=== PATIENT | male | born 1980 | race Caucasian/White ===

== ENCOUNTER 2018-05-02 12:31 | Observation (INO) | payer MEDICAID ==
--- NOTE | 2018-05-02 13:41 | EDPHY ---
H & P Stated Complaint: Right neck swelling Time Seen by Provider: 05/02/18 13:01 HPI/ROS: CHIEF COMPLAINT: Right-sided neck swelling HISTORY OF PRESENT ILLNESS: 37-year-old male HIV positive presents with right- sided neck swelling. Onset of gradually increasing right sided neck swelling 2 months ago. The area is now painful and erythematous. He had an IV placed rt neck 6 months ago, no recent trauma. No other adenopathy. He was seen by Dr. Whitfield in the office, who sent him to the ED for admission. He was diagnosed with HIV 6 months ago. Unknown CD4 count. No cough, chest pain, abdominal pain. REVIEW OF SYSTEMS: complete 10 point ROS reviewed and is negative except for the noted elements in the HPI Source: Patient - Personal History Current Tetanus/Diphtheria Vaccine: Unsure - Medical/Surgical History Hx Asthma: No Hx Chronic Respiratory Disease: No Hx Diabetes: No Hx Cardiac Disease: No Hx Renal Disease: No Hx Cirrhosis: No Hx Alcoholism: No Hx HIV/AIDS: Yes Hx Splenectomy or Spleen Trauma: No Other PMH: HIV - Social History Smoking Status: Never smoked Alcohol Use: Sober - Physical Exam Exam: General Appearance: Alert, pleasant Eyes: Pupils equal and round, no conjunctival pallor or injection ENT, Mouth: Mucous membranes moist Neck: Right lateral neck -3 cm firm area of swelling with overlying erythema just above the clavicle Respiratory: Lungs are clear to auscultation Cardiovascular: Regular rate and rhythm Gastrointestinal: Abdomen is soft and nontender Neurological: A&O, nonfocal, normal gait Skin: Warm and dry, no rash Extremities: Nontender, no pedal edema Psychiatric: Mood and affect normal Constitutional: Initial Vital Signs Temperature (C) 36.4 C 05/02/18 12:39 Heart Rate 97 05/02/18 12:39 Respiratory Rate 18 05/02/18 12:39 Blood Pressure 142/81 H 05/02/18 12:39 O2 Sat (%) 95 05/02/18 12:39 O2 Delivery Mode Room Air Allergies/Adverse Reactions: sulfamethoxazole [From Bactrim] Allergy (Verified 05/02/18 14:57) trimethoprim [From Bactrim] Allergy (Verified 05/02/18 14:57) Home Medications: Medication Instructions Recorded Albuterol [Proventil Inhaler HFA 1 - 2 puffs IH Q4H PRN 05/02/18 (*)] Dapsone [Dapsone 100 mg (*)] 100 mg PO DAILY06 05/02/18 Emtricitabine/Tenofov Alafenam 1 each PO DAILY06 05/02/18 [Descovy 200-25 mg Tablet] Multivitamins [Multivitamin (*)] 1 each PO DAILY 05/02/18 Tivicay 50 mg PO DAILY06 05/02/18 valGANciclovir HCL [Valganciclovir 450 mg PO DAILY@12 05/02/18 HCl] Medical Decision Making - Diagnostics Imaging Results: CT scan of the chest read by the radiologist reveals mediastinal adenopathy and a ground-glass appearance to the lungs. Imaging: Discussed imaging studies w/ call worker person Radiologist ED Course/Re-evaluation: Old medical record reviewed. CD4 count is less than 500 and viral load has been decreasing since September 2017. Clinical presentation concerning for abscess, ultrasound-guided aspiration ordered. The patient is nontoxic-appearing and does not meet SIRS criteria. Will await antibiotics until the aspiration has been performed. Multiple lab and imaging studies ordered as requested by Dr. Whitfield. The hospitalist service was consulted for admission. Differential Diagnosis: Includes does not limited to abscess, lymphoma, lymphadenitis, DVT. - Data Points Laboratory Results: Laboratory Results 05/02/18 13:33 05/02/18 13:33 05/02/18 13:33 CMV Specimen Source Pending CMV DNA Detection Pending Medications Given: Discontinued Medications Dapsone (Dapsone) 100 mg PO DAILY06 [facility] PRN Reason: Protocol Stop: 06/02/18 05:59 Last Admin: 05/03/18 05:06 Dose: 100 mg Sodium Chloride (Ns) 1,000 mls @ 125 mls/hr IV CONT [facility] Stop: 10/29/18 15:44 Last Admin: 05/02/18 18:12 Dose: 1,000 mls Miscellaneous Medication (Emtricitabine/Tenofov Alafenam [Descovy 200-25 Mg Tablet]) 1 each PO DAILY06 [facility] Stop: 10/30/18 05:59 Last Admin: 05/03/18 05:07 Dose: 200 mg Miscellaneous Medication (Tivicay) 50 mg PO DAILY06 [facility] Stop: 10/30/18 05:59 Last Admin: 05/03/18 05:06 Dose: 50 mg Multivitamins (Tab-A-Michael) 1 each PO DAILY [facility] Stop: 10/30/18 08:59 Last Admin: 05/03/18 09:58 Dose: 1 each Valganciclovir (Valcyte) 450 mg PO DAILY@1200 [facility] Stop: 06/02/18 11:59 Last Admin: 05/03/18 11:45 Dose: 450 mg Point of Care Test Results: Chemistry 05/02/18 14:14 POC Sodium 144 mEq/L mEq/L (135-145) POC Potassium 4.0 mEq/L mEq/L (3.3-5.0) POC Chloride 106 mEq/L mEq/L (97-110) POC BUN 13 mg/dL mg/dL (7-23) POC Creatinine 1.1 mg/dL mg/dL (0.7-1.3) POC Glucose 115 mg/dL H mg/dL (70-100) ISTAT H&H 05/02/18 14:14 POC Hgb 12.9 gm/dL L gm/dL (13.7-17.5) POC Hct 38 % L % (40-51) Departure - Departure Disposition: [facility] Inpatient Acute Clinical Impression: Neck mass Condition: Good
[2018-05-02 13:45] LABS: PLATELET COUNT 361 10^3/uL (150-400)
[2018-05-02] MEDS ORDERED: IOPAMIDOL (ISOVUE-300) 100 ML BTL ONE (14:20)
--- NOTE | 2018-05-02 15:05 | PDCONSULT ---
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 DDx mycobacteria (MAC, TB), fungal vs malignancy likely lymphoma. Strongly suspect MAC. Prior BAL cx showed MAC from 10/2017 --biopsy neck LN: send standard, AFB, fungal cx and path --Crypto An, Urine histo An, AFB blood culture --hopeful for rapid discharge # HIV/AIDS: --Continue TAF/FTC/DTG --Continue secondary ppx PJP w dapsone # CMV pneumonitis --continue valganciclovir --recheck CMV PCR # chronic cough and ground glass appearance on CT scan --may have to consider additional for pulmonary abn but could be residual changes from prior pulmonary abn INFECTIOUS DISEASE CONSULT Chief complaint: right neck mass [facility] patient History of present illness: This is a 37 year-old male, with hx of HIV AIDS tx with Johanna, HSV -1, pneumocystis in 09/2017 at time of HIV dx, JONNIE (no current tx), oral candidiasis with no associated oral pain, syphilis in 2011, HTN, and CMV PNA tx with valganciclovir. Pt developed a right neck swelling in mid-February which was tender, associated with fever and night sweats which have now resolved. Today, reports dry cough for past x4-6 weeks that is relatively stable and is exacerbated while laying flat, has tried tx with cough drops without relief, and has some days without coughing. Reports lack of energy and feeling really tired, but other than that is feeling fine." Denies BLE edema, weight loss, or loss in appetite. Pt is admitted for work-up of right neck mass. At time of HIV diagnoses pt had a CD4 count of 7 and a viral load of 1.8 million copies. On 01/23/18 CD4 count was 137 at 24%. On 02/17/18 his viral load was 224 copies. PMHx: HIV AID tx with Nataliay and Maxxay, HSV-1, pneumocystis in 09/2017 at time of HIV dx, JONNIE (no current tx), oral candidiasis with no associated oral pain, syphilis in 2011, CMV PNA on tx with valganciclovir, and HTN. SHx: Adenoidectomy, cleft lip, wisdom teeth extraction Family hx: Mothers grandfather of a heart attack in mid-50s who was a sunshine and not a smoker. Social hx: Former tobacco smoker with cessation on 09/2017, former meth use, no Etoh use. Works at a [employer]. Allergies: 3 Allergy/AdvReac Type Severity Reaction Status Date / Time sulfamethoxazole Allergy neutropenia Verified 05/02/18 14:57 [From Bactrim] trimethoprim [From Bactrim] Allergy neutropenia Verified 05/02/18 14:57 Pt is also allergic to latex. Active medications: Dapsone 100 mg Descovy 200/25 mg once daily Tivicay 50 mg once daily valganciclovir 900 mg daily ROS: 10 systems were reviewed and negative with the exception of the elements mentioned in the history of present illness. Vitals: 3 Temp Pulse Resp BP Pulse Ox 36.4 C 82 18 135/87 H 96 05/02/18 12:39 05/02/18 15:29 05/02/18 15:29 05/02/18 15:29 05/02/18 15:29 Physical exam: General: Well-nourished, well-developed, no apparent distress. HEENT: No scleral icterus or conjunctival injection. Oropharynx shows moist mucous membranes with no thrush. Poor dentition. Neck: Small egg sized lesion right base of right neck supraclavicular region, firm but fluctuant and immobile, mild tenderness, and redness overlying it. Chest: Clear to auscultation bilaterally without adventitious sounds. Respiratory effort is normal. Cardiovascular: Regular rate rhythm with no murmur, gallops or rubs. Abdomen: Soft, nontender, nondistended. Musculoskeletal: No cyanosis, clubbing or edema Skin: Normal color, no rash. Neurologic: AAOx3, moving all 4 extremities. Laboratory results: 3 WBC 4.53 10^3/uL (3.80-9.50) 05/02/18 13:33 RBC 4.25 10^6/uL (4.40-6.38) L 05/02/18 13:33 Hgb 11.6 g/dL (13.7-17.5) L 05/02/18 13:33 POC Hgb 12.9 gm/dL (13.7-17.5) L 05/02/18 14:14 Hct 36.5 % (40.0-51.0) L 05/02/18 13:33 POC Hct 38 % (40-51) L 05/02/18 14:14 MCV 85.9 fL (81.5-99.8) 05/02/18 13:33 MCH 27.3 pg (27.9-34.1) L 05/02/18 13:33 MCHC 31.8 g/dL (32.4-36.7) L 05/02/18 13:33 RDW 19.7 % (11.5-15.2) H 05/02/18 13:33 Plt Count 361 10^3/uL (150-400) 05/02/18 13:33 MPV 9.1 fL (8.7-11.7) 05/02/18 13:33 Neut % (Auto) 72.8 % (39.3-74.2) 05/02/18 13:33 Lymph % (Auto) 15.7 % (15.0-45.0) 05/02/18 13:33 [place] % (Auto) 7.5 % (4.5-13.0) 05/02/18 13:33 Eos % (Auto) 2.2 % (0.6-7.6) 05/02/18 13:33 Baso % (Auto) 1.1 % (0.3-1.7) 05/02/18 13:33 Nucleat RBC Rel Count 0.0 % (0.0-0.2) 05/02/18 13:33 Absolute Neuts (auto) 3.30 10^3/uL (1.70-6.50) 05/02/18 13:33 Absolute Lymphs (auto) 0.71 10^3/uL (1.00-3.00) L 05/02/18 13:33 Absolute Monos (auto) 0.34 10^3/uL (0.30-0.80) 05/02/18 13:33 Absolute Eos (auto) 0.10 10^3/uL (0.03-0.40) 05/02/18 13:33 Absolute Basos (auto) 0.05 10^3/uL (0.02-0.10) 05/02/18 13:33 Absolute Nucleated RBC 0.00 10^3/uL (0-0.01) 05/02/18 13:33 Immature Gran % 0.7 % (0.0-1.1) 05/02/18 13:33 Immature Gran # 0.03 10^3/uL (0.00-0.10) 05/02/18 13:33 POC Sodium 144 mEq/L (135-145) 05/02/18 14:14 Sodium 140 mEq/L (135-145) 05/02/18 13:33 POC Potassium 4.0 mEq/L (3.3-5.0) 05/02/18 14:14 Potassium 5.1 mEq/L (3.5-5.2) 05/02/18 13:33 POC Chloride 106 mEq/L (97-110) 05/02/18 14:14 Chloride 109 mEq/L (97-110) 05/02/18 13:33 Carbon Dioxide 25 mEq/l (22-31) 05/02/18 13:33 Anion Gap 6 mEq/L (6-14) 05/02/18 13:33 POC BUN 13 mg/dL (7-23) 05/02/18 14:14 BUN 14 mg/dL (7-23) 05/02/18 13:33 Creatinine 1.1 mg/dL (0.7-1.3) 05/02/18 13:33 POC Creatinine 1.1 mg/dL (0.7-1.3) 05/02/18 14:14 Estimated GFR > 60 05/02/18 13:33 Glucose 118 mg/dL (70-100) H 05/02/18 13:33 POC Glucose 115 mg/dL (70-100) H 05/02/18 14:14 Calcium 9.0 mg/dL (8.5-10.4) 05/02/18 13:33 Specimen Hemolysis 110 05/02/18 13:33 Microbiology: 05/02/18 Blood cx (2) pending results. Imaging studies: 04/25/18 CT Neck scan 3.9 x 2.9 x 4.5 cm mediastinal mass that appear either separative or necrotic. Right sternoclavicular mastoid at C7 level is 3.7 x. 2.3 x 2.8 cm rim enhancing fluid collection. Reviewed CT chest and abdomen/pelvis w radiology today Scribe attestation: I, Ingrid Pryor, am scribing for, and in the presence of, Carey Whitfield MD ICarey MD, personally performed the services described in this documentation, as scribed by Ingrid Pryor in my presence, and it is both accurate and complete. Greater than 70 minutes spent on this patients care, greater than 50% of time spent counseling, educating, and coordinating care regarding the above mentioned plan.
[2018-05-02] MEDS ORDERED: LIDOCAINE 1% 300 MG/30 ML SDV ONE (15:13)
[2018-05-02] MEDS ORDERED: ONDANSETRON 4 MG/2 ML VIAL IVP PRN (15:45)
[2018-05-02] MEDS ORDERED: LORazepam 2 MG/ML INJ IVP PRN (15:45)
[2018-05-02] MEDS ORDERED: ACETAMINOPHEN 325 MG TAB PO PRN (15:45)
[2018-05-02] MEDS ORDERED: LORazepam 0.5 MG TAB PO PRN (15:45)
[2018-05-02] MEDS ORDERED: NS 1,000 ML IV SCH (15:45)
[2018-05-02] MEDS ORDERED: OXYCODONE/APAP 5/325 TAB PO PRN (15:45)
[2018-05-02] MEDS ORDERED: HYDROCODONE/APAP 5/325 TAB PO PRN (15:45)
[2018-05-02] MEDS ORDERED: PROMETHAZINE HCL 25 MG/ML INJ IVP PRN (15:45)
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
[2018-05-02] MEDS ORDERED: ALBUTEROL 60 PUFFS/8 GM MDI IH PRN (17:38)
[2018-05-03] MEDS ORDERED: DAPSONE 100 MG TAB PO SCH (06:00)
[2018-05-03] MEDS ORDERED: DOLUTEGRAVIR 50 MG PO SCH (06:00)
[2018-05-03] MEDS ORDERED: Emtricitabine/Tenofov Alafenam [Descovy 200-25 Mg Tablet] PO SCH (06:00)
[2018-05-03 07:48] VITALS: BP 129/83
--- NOTE | 2018-05-03 08:23 | PCMIDPN ---
Assessment/Plan: # R Neck and mediastinal (9cm) masses, appearance most c/w necrotic LN. DDx mycobacteria (MAC, TB), nocardia, fungal vs lymphoma. Strongly suspect MAC. Prior BAL cx showed MAC from 10/2017 --multiple pending tests, okay to dc before results --ok to dc today, he will f/u with ID for results # HIV/AIDS, CD4 =137 (24%) --Continue TAF/FTC/DTG --Continue secondary ppx PJP w dapsone # CMV pneumonitis --continue valganciclovir --CMV PCR pending # chronic cough and ground glass appearance on CT scan: minimal cough this AM. Findings may be residual from CMV pneumonitis Subjective: feeling well, ate well this AM, no new symptoms Objective: Vital Signs Temp Pulse Resp BP Pulse Ox 36.8 C 74 16 129/83 H 91 L 05/03/18 07:47 05/03/18 07:47 05/03/18 07:47 05/03/18 07:47 05/03/18 07:47 Microbiology 05/02/18 16:30 Gram Stain - Final Neck - Aspirate 05/02/18 05/03/18 05/04/18 05:59 05:59 05:59 Intake Total 500 Output Total 800 Balance -300 - Physical Exam General Appearance: alert, no apparent distress, obese EENT: No scleral icterus, No thrush Respiratory: lungs clear, No accessory muscle use, No crackles Neck: other (swelling base R neck no longer palpable after aspiration) Cardiac/Chest: regular rate, rhythm Extremities: No pedal edema Abdomen: soft Skin: No rash Neuro/Psych: alert, normal mood/affect, oriented x 3 - Time Spent With Patient Time Spent with Patient: greater than 35 minutes Time Spent with Patient: Greater than 35 minutes spent on this patients care, greater than 50% of time spent counseling, educating, and coordinating care regarding the above mentioned plan. ICD10 Worksheet Patient Problems: Problems Problem Status Onset Neck mass Acute
[2018-05-03] MEDS ORDERED: MULTIVITAMINS 1 EACH TAB PO SCH (09:00)
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
== END 2018-05-03 11:51 | disposition home or self-care (01) ==
LOC: F3E 17:17
PROVIDERS: ADMIT Internal Medicine; ATTEND Internal Medicine
PROC: 0JD Subcutaneous Tissue and Fascia, Extraction (ICD-10-PCS; principal; 2018-05-02)
DX: R22.1 Localized swelling, mass and lump, neck (principal); R59.1 Generalized enlarged lymph nodes; B20 Human immunodeficiency virus [HIV] disease; B25.0 Cytomegaloviral pneumonitis
CPT/HCPCS: 10022; 10030; 71260; 74177; G0378; 82435-PO; 82565-PO; 82947-PO; 84132-PO; 84295-PO; 84520-PO; 85014-ER; 87385-90; 87496-90; Q9967